=== PATIENT | male | born 1945 | race Caucasian/White ===

== ENCOUNTER 2019-07-27 19:28 | Observation (INO) | payer MEDICARE, OTHER ==
[2019-07-27 20:38] LABS: ABSOLUTE EOSINOPHILS # (AUTO) 0.1 10^3/uL (0.0-0.6); ABSOLUTE LYMPHOCYTES (AUTO) 0.9 10^3/uL (0.5-4.7); ABSOLUTE MONOCYTES (AUTO) 0.6 10^3/uL (0.1-1.4); ABSOLUTE NEUT (AUTO) 4.6 10^3/uL (1.7-8.2); BASOPHILS % (AUTO) 0.5 % (0-2); EOSINOPHILS % (AUTO) 2.4 % (0-6); HEMATOCRIT 33.2 % (37.9-51.0); HEMOGLOBIN 10.6 g/dL (13.5-17.0); LYMPHOCYTES % (AUTO) 13.8 % (13-45); MEAN CORPUSCULAR VOLUME 84 fl (80-97); MONOCYTES % (AUTO) 10.2 % (3-13); PLATELET COUNT 223 10^3/uL (150-450); RED BLOOD COUNT 3.93 10^6/uL (4.35-5.55); RED CELL DISTRIBUTION WIDTH 20.8 % (11.5-14.0); SEGMENTED NEUTROPHILS % (AUTO) 73.1 % (42-78); TOTAL CELLS COUNTED % (AUTO) 100 %; WHITE BLOOD COUNT 6.3 10^3/uL (4.0-10.5)
[2019-07-27 20:44] LABS: ALBUMIN 4.1 g/dL (3.5-5.0); ALKALINE PHOSPHATASE 95 U/L (38-126); ANION GAP 9 (5-19); ASPARTATE AMINO TRANSFERASE 44 U/L (17-59); BILIRUBIN,DIRECT 0.4 mg/dL (0.0-0.4); BILIRUBIN,TOTAL 0.7 mg/dL (0.2-1.3); BLOOD UREA NITROGEN 27 mg/dL (7-20); CALCIUM 9.4 mg/dL (8.4-10.2); CARBON DIOXIDE 27 mmol/L (22-30); CHLORIDE 103 mmol/L (98-107); CREATINE KINASE 62 U/L (55-170); GLUCOSE 91 mg/dL (75-110); POTASSIUM 4.9 mmol/L (3.6-5.0); TOTAL PROTEIN 7.5 g/dL (6.3-8.2)
[2019-07-27 20:56] LABS: CREATINE KINASE MB 1.02 ng/mL (<4.55)
[2019-07-27 20:57] LABS: TROPONIN I < 0.012 ng/mL
[2019-07-27] MEDS ORDERED: NITROGLYCERIN 2% OINTMENT 1 GM PACKET TP ONE (21:09)
--- NOTE | 2019-07-27 21:21 | ER Document Report ---
Entered by ALFIE ALVAREZ SCRIBE 07/27/192054 Acting as scribe for:ITZ LAMBERT IV, MD ED General - General Chief Complaint: Chest Pain Stated Complaint: CHEST PAIN Time Seen by Provider: 07/27/19 19:42 Primary Care Provider: DUY VILLALOBOS FNP [Primary Care Provider] - Follow up as needed Mode of Arrival: Ambulatory Information source: Patient, Relative - Notes: This 74 year old male patient with a history of CAD, SD, CHF, HTN, and HLD presents to the ED today accompanied by his with complaints of chest pain with radiation down to his LUE that started x1 hour prior to arrival. states that when she returned from shopping, she found the patient sitting in the car complaining of chest pain. Patient reports that he took x3 NTG with minimal relief. Patient states that the chest pain at its worse was 10/5, but is now 0/5 and "easing off." TRAVEL OUTSIDE OF THE [place] IN LAST 30 DAYS: No - Related Data Allergies/Adverse Reactions: No Known Allergies Allergy (Verified 07/27/19 20:13) Past Medical History - General Information source: Patient, Relative - - Social History Smoking Status: Current Every Day Smoker Cigarette use (# per day): Yes Chew tobacco use (# tins/day): No Smoking Education Provided: No Frequency of alcohol use: None Drug Abuse: None Lives with: Spouse/Significant other Family History: Reviewed & Not Pertinent Patient has suicidal ideation: No Patient has homicidal ideation: No - Past Medical History Cardiac Medical History: Reports: Hx Congestive Heart Failure, Hx Coronary Artery Disease, Hx Heart Attack, Hx Hypercholesterolemia, Hx Hypertension GI Medical History: Reports: Hx Gastroesophageal Reflux Disease Past Surgical History: Reports: Hx Cardiac Catheterization - stent placed, Hx Coronary Artery Bypass Graft, Hx Coronary Stent - Immunizations Hx Diphtheria, Pertussis, Tetanus Vaccination: Yes Hx Pneumococcal Vaccination: 07/13/13 Review of Systems - Review of Systems Constitutional: No symptoms reported EENT: No symptoms reported Cardiovascular: See HPI, Chest pain Respiratory: No symptoms reported Gastrointestinal: No symptoms reported Genitourinary: No symptoms reported Male Genitourinary: No symptoms reported Musculoskeletal: See HPI, Other - LUE pain Skin: No symptoms reported Hematologic/Lymphatic: No symptoms reported Neurological/Psychological: No symptoms reported -: Yes All other systems reviewed and negative Physical Exam - Vital signs Vitals: Pulse Ox 84 L 07/27/19 18:32 - General General appearance: Alert - and oriented, Other - Non-focal physical exam In distress: None - HEENT Head: Normocephalic, Atraumatic Eyes: Normal Pupils: PERRL - Respiratory Respiratory status: No respiratory distress Chest status: Nontender Breath sounds: Normal Chest palpation: Normal - Cardiovascular Rhythm: Regular Heart sounds: Normal auscultation Murmur: No Friction rub: No Gallop: None auscultated - Abdominal Inspection: Normal Distension: No distension Bowel sounds: Normal Tenderness: Nontender - Abdomen soft Organomegaly: No organomegaly - Back Back: Normal, Nontender - Extremities General upper extremity: Normal inspection General lower extremity: Normal inspection - Neurological Neuro grossly intact: Yes - Psychological Associated symptoms: Normal affect, Normal mood - Skin Skin Temperature: Warm Skin Moisture: Dry Skin Color: Normal Course - Re-evaluation Re-evalutation: 07/27/19 22:01 Results of ED MSE discussed with patient patient spouse. All questions were answered. Patient is agreeable to overnight admission for observation. - Vital Signs Vital signs: Temp Pulse Resp BP Pulse Ox 97.3 F 79 24 H 160/84 H 90 L 07/27/19 19:38 07/27/19 19:38 07/27/19 21:01 07/27/19 21:01 07/27/19 21:01 - Laboratory Result Diagrams: 07/27/19 20:04 07/27/19 20:04 Laboratory results interpreted by me: 07/27/19 07/27/19 20:04 20:04 RBC 3.93 L Hgb 10.6 L Hct 33.2 L RDW 20.8 H BUN 27 H Creatinine 1.63 H Est GFR ( Amer) 50 L Est GFR (MDRD) Non-Af 42 L - Diagnostic Test Radiology reviewed: Reports reviewed - EKG Interpretation by Me Additional EKG results interpreted by me: 07/27/19 21:14 EKG obtained on 07/27/2027 1912 hrs. was interpreted by this MD. Findings: Sinus rhythm, first-degree AV block is present, there is left axis deviation, P waves preceding QRS complexes, QRS complexes appear narrow, there are no obviously visible ST segment patterns of elevation or depression present to suggest acute myocardial ischemia or infarction. Impression sinus rhythm with first-degree AV block, left axis deviation and nonspecific ST segments. - Consults dr. shira maravilla Time consulted: 21:58 Reason for consultation: 07/27/19 22:22 chest pain, multiple risk factors for cad Consulted provider: will come to ER Discharge - Discharge Clinical Impression: Acute chest pain Condition: Good Disposition: ADMITTED OBSERVATION Admitting Provider: Douglas (Hospitalist) Unit Admitted: Telemetry Referrals: DUY VILLALOBOS FNP [Primary Care Provider] - Follow up as needed I personally performed the services described in the documentation, reviewed and edited the documentation which was dictated to the scribe in my presence, and it accurately records my words and actions.
[2019-07-27] MEDS ORDERED: LACTULOSE SYRUP 20 GM/30 ML UDCUP PO ONE (22:00)
[2019-07-27] MEDS ORDERED: (PENDING PHARMACY ID) (Carbidopa/Levodopa [Carbidopa-Levo 25-100 Mg Odt] 1 EACH) PO SCH (22:00)
[2019-07-27] MEDS ORDERED: MAG HYDROX/AL HYDROX/SIMETH SUSP 30 ML UDCUP PO PRN (22:01)
[2019-07-27] MEDS ORDERED: ACETAMINOPHEN 325 MG TABLET PO PRN (22:01)
--- NOTE | 2019-07-27 22:01 | RADIOLOGY REPORT (SQ) ---
Chest one view on 07/27/2019 at 9:48 PM CLINICAL INDICATION: Chest pain COMPARISON: 12/07/2013 FINDINGS: The patient is status post median sternotomy. There are stable bilateral areas of likely pleural thickening versus stable loculated lateral pleural effusions. Vascular calcification is noted in the aorta. Cardiac, hilar and mediastinal contours are within normal limits. Mild chronic interstitial changes are noted. IMPRESSION: No significant change in the appearance of the chest.
[2019-07-27] MEDS ORDERED: CARBIDOPA/LEVODOPA 25-100 MG TABLET PO ONE ×2 (22:15→23:45)
[2019-07-27] MEDS ORDERED: METOPROLOL SUCCINATE 50 MG TAB.SR.24H PO ONE (22:30)
[2019-07-27] MEDS: ATORVASTATIN CALCIUM 80 MG TABLET PO SCH (22:52)
[2019-07-27] MEDS: AMITRIPTYLINE HCL 50 MG TABLET PO SCH (22:52)
--- NOTE | 2019-07-28 05:21 | PDOC H&P ---
History of Present Illness Admission Date/PCP: 07/27/19 22:32 SAVITA ZHOU Patient complains of: Chest pain History of Present Illness: BETH PINEDA is a 74 year old male with a past medical history of coronary artery disease, atrial flutter on Eliquis, rheumatoid arthritis, Parkinson's with dementia and hypertension. Patient presents with left-sided chest pain which was 4 out of 5 intensity lasting approximately 35 minutes not relieved by nitroglycerin x3, it was dull in nature it radiated to his left shoulder and arm. He is unable to identify alleviating or exacerbating factors it was associated with some nausea without vomiting no palpitations or shortness of breath. He denies recent change in medication regiment and is otherwise felt well. He denies recent stress testing. His work-up was unremarkable for acute coronary but significant for a microcytic anemia, acute renal failure, and borderline hyperkalemia. Past Medical History Cardiac Medical History: Reports: Congestive Heart Failure, Coronary Artery Disease, Myocardial Infarction, Hyperlipidema, Hypertension Pulmonary Medical History: Denies: Tuberculosis GI Medical History: Reports: Gastroesophageal Reflux Disease Psychiatric Medical History: Reports: Other - Vape use Denies: Depression Past Surgical History Past Surgical History: Reports: Cardiac Catheterization - stent placed, Coronary Artery Bypass Graft, Coronary Stent Social History Lives with: Spouse/Significant other Smoking Status: Current Every Day Smoker Electronic Cigarette use?: Yes Frequency of Alcohol Use: None Hx Recreational Drug Use: No Drugs: None Hx Prescription Drug Abuse: No Family History Family History: Reviewed & Not Pertinent Parental Family History Reviewed: No Children Family History Reviewed: No Sibling(s) Family History Reviewed.: No Medication/Allergy Home Medications: Amitriptyline HCl [Elavil 50 Mg Tablet] 100 mg PO QHS 07/27/19 Apixaban [Eliquis 5 mg Tablet] 5 mg PO BID 07/27/19 Apremilast [Otezla] 30 mg PO BID 07/27/19 Atorvastatin Calcium [Lipitor] 80 mg PO QHS 07/27/19 Carbidopa/Levodopa [Carbidopa-Levo 25-100 mg Odt] 1 each PO QHS 07/27/19 Carbidopa/Levodopa [Sinemet 25-100 mg Tablet] 1 each PO TID 07/27/19 Docusate Sodium [Colace 100 mg Capsule] 100 mg PO BID 07/27/19 Donepezil HCl [Aricept] 5 mg PO DAILY 07/27/19 Finasteride [Proscar 5 mg Tablet] 5 mg PO DAILY 07/27/19 Fludrocortisone Acetate [Florinef 0.1 mg Tablet] 0.1 mg PO DAILY 07/27/19 Folic Acid 1 mg PO QHS 07/27/19 Furosemide [Lasix 20 mg Tablet] 20 mg PO PRN PRN 07/27/19 Methotrexate Sodium [Rheumatrex 2.5 mg Tablet] 10 mg PO Q7D 07/27/19 Metoprolol Succinate [Toprol Xl 50 mg Tab.sr] 50 mg PO DAILY 07/27/19 Mv-Mn/Iron/Folic Acid/Herb 190 [Vitamin D3 Complete Caplet] 1 each PO DAILY 07/27/19 Omeprazole 20 mg PO DAILY 07/27/19 Potassium Chloride [K-Tab ER] 20 meq PO DAILY 07/27/19 Tamsulosin HCl [Flomax] 0.4 mg PO DAILY 07/27/19 Allergies/Adverse Reactions: No Known Allergies Allergy (Verified 07/27/19 20:13) Review of Systems Constitutional: ABSENT: chills, fever(s), headache(s), weight gain, weight loss Eyes: ABSENT: visual disturbances Ears: ABSENT: hearing changes Cardiovascular: ABSENT: chest pain, dyspnea on exertion, edema, orthropnea, palpitations Respiratory: ABSENT: cough, hemoptysis Gastrointestinal: ABSENT: abdominal pain, constipation, diarrhea, hematemesis, hematochezia, nausea, vomiting Genitourinary: ABSENT: dysuria, hematuria Musculoskeletal: ABSENT: joint swelling Integumentary: ABSENT: rash, wounds Neurological: ABSENT: abnormal gait, abnormal speech, confusion, dizziness, focal weakness, syncope Psychiatric: ABSENT: anxiety, depression, homidical ideation, suicidal ideation Endocrine: ABSENT: cold intolerance, heat intolerance, polydipsia, polyuria Hematologic/Lymphatic: ABSENT: easy bleeding, easy bruising Physical Exam Vital Signs: Temp Pulse Resp BP Pulse Ox 98.3 F 102 H 18 139/76 H 94 07/28/19 04:35 07/28/19 04:35 07/28/19 04:35 07/28/19 04:35 07/28/19 04:35 Intake & Output 07/26/19 07/27/19 07/28/19 11:59 11:59 11:59 Intake Total 90 Balance 90 Weight 84.6 kg General appearance: PRESENT: no acute distress, well-developed, well-nourished Head exam: PRESENT: atraumatic, normocephalic Eye exam: PRESENT: conjunctiva pink, EOMI, PERRLA. ABSENT: scleral icterus Ear exam: PRESENT: normal external ear exam Mouth exam: PRESENT: moist, tongue midline Neck exam: ABSENT: carotid bruit, JVD, lymphadenopathy, thyromegaly Respiratory exam: PRESENT: clear to auscultation angela. ABSENT: rales, rhonchi, wheezes Cardiovascular exam: PRESENT: irregular rhythm. ABSENT: diastolic murmur, rubs, systolic murmur Pulses: PRESENT: normal dorsalis pedis pul Vascular exam: PRESENT: normal capillary refill GI/Abdominal exam: PRESENT: hypoactive bowel sounds, normal bowel sounds, soft, tenderness - Left lower quadrant. ABSENT: distended, guarding, mass, organolmegaly, rebound Rectal exam: PRESENT: deferred Extremities exam: PRESENT: full ROM. ABSENT: calf tenderness, clubbing, pedal edema Neurological exam: PRESENT: alert, awake, oriented to person, oriented to place, oriented to time, oriented to situation, CN II-XII grossly intact. ABSENT: motor sensory deficit Psychiatric exam: PRESENT: appropriate affect, normal mood. ABSENT: homicidal ideation, suicidal ideation Skin exam: PRESENT: dry, intact, warm. ABSENT: cyanosis, rash Results Laboratory Results: 07/27/19 20:04 07/27/19 20:04 07/27/19 07/27/19 20:04 20:04 WBC 6.3 RBC 3.93 L Hgb 10.6 L Hct 33.2 L MCV 84 MCH 27.0 MCHC 32.0 RDW 20.8 H Plt Count 223 Seg Neutrophils % 73.1 Sodium 139.1 Potassium 4.9 Chloride 103 Carbon Dioxide 27 Anion Gap 9 BUN 27 H Creatinine 1.63 H Est GFR ( Amer) 50 L Glucose 91 Calcium 9.4 Total Bilirubin 0.7 AST 44 Alkaline Phosphatase 95 Total Protein 7.5 Albumin 4.1 07/27/19 07/27/19 07/27/19 20:04 20:04 22:50 Creatine Kinase 62 CK-MB (CK-2) 1.02 Troponin I < 0.012 < 0.012 Impressions: Chest X-Ray 07/27/19 19:44 IMPRESSION: No significant change in the appearance of the chest. Assessment and Plan - Diagnosis (1) Acute chest pain Is this a current diagnosis for this admission?: Yes Plan: Atypical chest pain though the patient's pain is atypical there are multiple risk factors for coronary artery disease and subsequently will observe and evaluation of acute coronary syndrome versus coronary artery disease with anginal equivalents. Cardiac monitoring blood pressure Q6 hours ,TSH, lipid profile, serial cardiac enzymes and cardiac stress test (2) Acute renal failure Is this a current diagnosis for this admission?: Yes Plan: Unclear cause, follow-up urinalysis, avoid nephrotoxic meds and doses (3) Constipation Is this a current diagnosis for this admission?: Yes Plan: Left lower quadrant pain, trial lactulose, (4) Microcytic anemia Is this a current diagnosis for this admission?: Yes Plan: Likely iron deficient anemia, follow-up anemia labs and fecal occult stool. (5) Atrial flutter Is this a current diagnosis for this admission?: Yes Plan: Continue outpatient regiment Eliaveryis and Logertrude. (6) CAD (coronary artery disease) Is this a current diagnosis for this admission?: Yes Plan: Please see #1, chest pain care set with likely outpatient stress testing - Time Time Spent with patient: 25-34 minutes
[2019-07-28 05:35] LABS: ABSOLUTE RETICS # 0.043 10^6/uL (0.028-0.122); RETICULOCYTE COUNT (AUTO) 1.12 % (0.66-2.85)
[2019-07-28 07:04] LABS: IRON(TIBC) < 10.1 ug/dL (49-181)
[2019-07-28] MEDS ORDERED: (PENDING PHARMACY ID) (Apremilast [Otezla] 30 MG) PO SCH (10:00)
[2019-07-28] MEDS: ASPIRIN 81 MG TABLET, ENT COATED PO SCH (10:09)
[2019-07-28] MEDS: TAMSULOSIN HCL 0.4 MG CAP.SR.24H PO SCH (10:09)
[2019-07-28] MEDS: METOPROLOL SUCCINATE 50 MG TAB.SR.24H PO SCH (10:09)
[2019-07-28] MEDS: DOCUSATE SODIUM 100 MG CAPSULE PO SCH ×2 (10:10→18:38)
[2019-07-28] MEDS: FLUDROCORTISONE ACETATE 0.1 MG TABLET PO SCH (10:10)
[2019-07-28] MEDS: DONEPEZIL HCL 5 MG TABLET PO SCH (10:10)
[2019-07-28] MEDS: CARBIDOPA/LEVODOPA 25-100 MG TABLET PO SCH ×3 (10:10→18:38)
[2019-07-28] MEDS: APIXABAN 5 MG TABLET PO SCH ×2 (10:10→18:38)
[2019-07-28] MEDS: FINASTERIDE 5 MG TABLET PO SCH (10:10)
[2019-07-28] MEDS ORDERED: IRON SUCROSE COMPLEX 300 MG in NORMAL SALINE 250 ML IV ONE (11:00)
[2019-07-28] MEDS: NORMAL SALINE 1000 ML 1,000 ML IV PRN ×2 (13:10→22:06)
[2019-07-28] MEDS ORDERED: MAGNESIUM HYDROXIDE SUSP 30 ML UDCUP PO PRN (15:54)
--- NOTE | 2019-07-28 16:04 | PDOC PROGRESS REPORT ---
Subjective Progress Note for:: 07/28/19 Subjective:: BETH PINEDA is a 74 year old male with a past medical history of coronary artery disease, atrial flutter on Eliquis, rheumatoid arthritis, Parkinson's with dementia and hypertension who was admitted 07/27/2019 for chest pain, and IJEOMA. Patient was seen on morning rounds with his present. He was found resting in bed, comfortably, on room air. He reports that he is feeling well today and is hopeful to discharge home soon. He denies any further episodes of chest discomfort. He further denies fever, palpitations, dyspnea, orthopnea, cough, abdominal pain, nausea vomiting diarrhea. Have no questions or concerns at this time. No concerns per nursing. Reason For Visit: CP Physical Exam Vital Signs: Temp Pulse Resp BP Pulse Ox 98.3 F 83 20 124/73 99 07/28/19 11:20 07/28/19 11:20 07/28/19 11:20 07/28/19 11:20 07/28/19 11:20 Intake & Output 07/27/19 07/28/19 07/29/19 06:59 06:59 06:59 Intake Total 90 390 Balance 90 390 Weight 84.6 kg General appearance: PRESENT: no acute distress, cooperative, well-developed, well-nourished Head exam: PRESENT: atraumatic, normocephalic Eye exam: PRESENT: conjunctiva pink, EOMI, PERRLA. ABSENT: scleral icterus Ear exam: PRESENT: normal external ear exam Mouth exam: PRESENT: moist, tongue midline Respiratory exam: PRESENT: clear to auscultation angela, symmetrical, unlabored. ABSENT: rales, rhonchi, wheezes Cardiovascular exam: PRESENT: irregular rhythm, +S1, +S2. ABSENT: diastolic murmur, rubs, systolic murmur Pulses: PRESENT: normal dorsalis pedis pul Vascular exam: PRESENT: normal capillary refill Rectal exam: PRESENT: deferred Extremities exam: PRESENT: full ROM. ABSENT: calf tenderness, clubbing, pedal edema Neurological exam: PRESENT: alert, awake, oriented to person, oriented to place, oriented to time, oriented to situation, CN II-XII grossly intact. ABSENT: motor sensory deficit Psychiatric exam: PRESENT: appropriate affect, normal mood. ABSENT: homicidal ideation, suicidal ideation Skin exam: PRESENT: dry, intact, warm. ABSENT: cyanosis, rash Results Laboratory Results: 07/27/19 20:04 07/27/19 20:04 07/27/19 07/27/19 07/28/19 20:04 20:04 04:28 WBC 6.3 RBC 3.93 L Hgb 10.6 L Hct 33.2 L MCV 84 MCH 27.0 MCHC 32.0 RDW 20.8 H Plt Count 223 Seg Neutrophils % 73.1 Retic Count (auto) 1.12 Sodium 139.1 Potassium 4.9 Chloride 103 Carbon Dioxide 27 Anion Gap 9 BUN 27 H Creatinine 1.63 H Est GFR ( Amer) 50 L Glucose 91 Calcium 9.4 Iron TIBC Ferritin Total Bilirubin 0.7 AST 44 Alkaline Phosphatase 95 Total Protein 7.5 Albumin 4.1 Vitamin B12 Folate 07/28/19 05:27 WBC RBC Hgb Hct MCV MCH MCHC RDW Plt Count Seg Neutrophils % Retic Count (auto) Sodium Potassium Chloride Carbon Dioxide Anion Gap BUN Creatinine Est GFR ( Amer) Glucose Calcium Iron < 10.1 L TIBC 411 Ferritin 12.60 L Total Bilirubin AST Alkaline Phosphatase Total Protein Albumin Vitamin B12 294.0 Folate 12.80 07/27/19 07/27/19 07/27/19 20:04 20:04 22:50 Creatine Kinase 62 CK-MB (CK-2) 1.02 Troponin I < 0.012 < 0.012 07/28/19 04:28 Creatine Kinase CK-MB (CK-2) Troponin I < 0.012 Impressions: Chest X-Ray 07/27/19 19:44 IMPRESSION: No significant change in the appearance of the chest. Assessment and Plan - Diagnosis (1) Acute chest pain Is this a current diagnosis for this admission?: Yes Plan: Atypical chest pain though the patient's pain is atypical there are multiple risk factors for coronary artery disease. Patient was admitted to medical floor on continuous cardiac telemetry. EKG demonstrated atrial fibrillation with no ST segment changes or other findings. Sinus rhythm with first-degree AV block: No ST segment changes or other acute findings. Serial troponins have been negative x4. We will check hemoglobin A1c and lipid panel with a.m. lab work. We will continue his home dose Eliquis. Provide daily ASA. Continue home antihypertensives. Continue home dose atorvastatin. Follow-up Cardiolite stress test. Cardiac diet. (2) Acute renal failure Is this a current diagnosis for this admission?: Yes Plan: Unclear cause. Urinalysis pending. Will check bladder scan to evaluate for urinary retention with urinary overflow. We will avoid nephrotoxic medications as able. Provide gentle IV fluids. Follow-up chemistry. (3) Constipation Is this a current diagnosis for this admission?: Yes Plan: Left lower quadrant pain Lactulose x1 last night. Continue Colace. Milk of Mag x1 now. (4) Microcytic anemia Is this a current diagnosis for this admission?: Yes Plan: Anemia panel reveals iron deficiency anemia. IV Venofer. Daily multivitamin with oral Ferrous sulfate supplementation. Will check UA and Occult stool. Outpatient follow-up by PCP; may benefit from hematology referral for continued outpatient management. (5) Atrial flutter Is this a current diagnosis for this admission?: Yes Plan: PAF Currently rate controlled in sinus rhythm Continue outpatient regiment Eliquis and Lopressor. Monitor on telemetry. (6) CAD (coronary artery disease) Is this a current diagnosis for this admission?: Yes Plan: Eliquis, ASA, statin therapy. Cardiac diet. Remaining management as in #1 - Time Time Spent with patient: 35 or more minutes Medications reviewed and adjusted accordingly: Yes Anticipated discharge: Home Within: within 24 hours
[2019-07-28] MEDS ORDERED: MAGNESIUM HYDROXIDE SUSP 30 ML UDCUP PO ONE (16:30)
[2019-07-28 18:39] LABS: APPEARANCE,URINE CLEAR; BILIRUBIN,URINE NEGATIVE (NEGATIVE); COLOR,URINE STRAW; GLUCOSE, URINE NEGATIVE (NEGATIVE); KETONES,URINE NEGATIVE (NEGATIVE); LEUKOCYTE ESTERASE,URINE NEGATIVE (NEGATIVE); NITRITE,URINE NEGATIVE (NEGATIVE); PROTEIN,URINE NEGATIVE (NEGATIVE); URINE SPECIFIC GRAVITY 1.009; UROBILINOGEN,URINE NEGATIVE mg/dL (<2.0)
[2019-07-28] MEDS ORDERED: LACTULOSE SYRUP 20 GM/30 ML UDCUP PO ONE (20:15)
--- NOTE | 2019-07-28 20:50 | RADIOLOGY REPORT (SQ) ---
EXAM DESCRIPTION: [facility]: XR ABDOMEN 2 VIEWS SUPINE ERECT Views: 2 CLINICAL HISTORY: 74 years Male; pain; COMPARISON: None. FINDINGS: Supine and erect AP abdomen: Bowel gas pattern is normal, with no air-fluid levels or small bowel distention. No free intraperitoneal air. There are several calcifications overlying left kidney, up to 5 mm diameter. No right renal calcifications. Psoas shadows are sharp. Sternal wires are partially visualized. IMPRESSION: 1. No acute bowel findings 2. Left renal calculi
[2019-07-28] MEDS ORDERED: NA PHOS,M-B/NA PHOS,DI-BA (ADULT) 133 ML ENEMA PR ONE (21:00)
[2019-07-28 21:02] LABS: CREATINE KINASE MB 1.14 ng/mL (<4.55)
[2019-07-28 21:03] LABS: TROPONIN I < 0.012 ng/mL
[2019-07-28] MEDS: ATORVASTATIN CALCIUM 80 MG TABLET PO SCH (21:35)
[2019-07-28] MEDS: AMITRIPTYLINE HCL 50 MG TABLET PO SCH (21:35)
[2019-07-28] MEDS ORDERED: CARBIDOPA/LEVODOPA 25-100 MG TABLET PO SCH (22:00)
--- NOTE | 2019-07-29 00:27 | EKG REPORT ---
SEVERITY:- ABNORMAL ECG - SINUS RHYTHM VENTRICULAR PREMATURE COMPLEX FIRST DEGREE AV BLOCK LEFT AXIS DEVIATION : Confirmed by: Vivian Obrien 29-Jul-2019 00:27:15
--- NOTE | 2019-07-29 00:27 | EKG REPORT ---
SEVERITY:- ABNORMAL ECG - SINUS RHYTHM FIRST DEGREE AV BLOCK PROBABLE LEFT ATRIAL ABNORMALITY LEFT AXIS DEVIATION BORDERLINE T WAVE ABNORMALITIES BORDERLINE PROLONGED QT INTERVAL : Confirmed by: Vivian Obrien 29-Jul-2019 00:27:25
[2019-07-29 02:55] LABS: CREATINE KINASE MB 0.95 ng/mL (<4.55); TROPONIN I 0.014 ng/mL
--- NOTE | 2019-07-29 07:50 | EKG REPORT ---
SEVERITY:- ABNORMAL ECG - SINUS RHYTHM VENTRICULAR PREMATURE COMPLEX FIRST DEGREE AV BLOCK LEFT AXIS DEVIATION : Confirmed on behalf of: Vivian Obrien 29-Jul-2019 07:49:39
[2019-07-29 09:40] LABS: CREATINE KINASE MB 0.88 ng/mL (<4.55); TROPONIN I 0.017 ng/mL
[2019-07-29] MEDS ORDERED: MULTIVITAMIN TABLET PO SCH (10:00)
[2019-07-29] MEDS: CARBIDOPA/LEVODOPA 25-100 MG TABLET PO SCH ×2 (11:21→16:26)
[2019-07-29] MEDS: FLUDROCORTISONE ACETATE 0.1 MG TABLET PO SCH (11:21)
[2019-07-29] MEDS: FINASTERIDE 5 MG TABLET PO SCH (11:21)
[2019-07-29] MEDS: DONEPEZIL HCL 5 MG TABLET PO SCH (11:21)
[2019-07-29] MEDS: APIXABAN 5 MG TABLET PO SCH (11:21)
[2019-07-29] MEDS: ASPIRIN 81 MG TABLET, ENT COATED PO SCH (11:21)
[2019-07-29] MEDS: TAMSULOSIN HCL 0.4 MG CAP.SR.24H PO SCH (11:21)
[2019-07-29] MEDS: DOCUSATE SODIUM 100 MG CAPSULE PO SCH (11:22)
[2019-07-29] MEDS: METOPROLOL SUCCINATE 50 MG TAB.SR.24H PO SCH (11:22)
[2019-07-29] MEDS: NORMAL SALINE 1000 ML 1,000 ML IV PRN (11:26)
[2019-07-29] MEDS ORDERED: REGADENOSON INJ 0.4 MG/5 ML DISP.SYRIN IV ONE (14:41)
--- NOTE | 2019-07-29 15:42 | DRAGON STRESS TEST REPORT ---
Pharmacological nuclear stress test Date July 29, 2019 Name: Dioni Nascimento Date of : 1945 Age: 74 years Indication: Chest pain, coronary artery disease, CABG Procedure Initially rest images of the heart were obtained 90 minutes after injection of 12.09 mCi of technetium 99m sestamibi. Under the supervision of Efrem Louie MD the patient was given regadenoson 0.4 mg IV followed by 35.7 mCi of technetium 99m sestamibi. The patient's EKG and vital signs were monitored throughout the procedure. Patient's resting EKG showed sinus tachycardia at 104 bpm. EKG monitoring did not show any evidence of myocardial ischemia due to pharmacological stress. Stress images of the heart were obtained 90 minutes after the Cardiolite stress dose was given. Raw rest as well as stress images were reviewed. There was significant gut uptake. Motion correction was used. Review of rest as well as stress images shows fairly symmetrical radiotracer uptake throughout the myocardium. There is a small to medium intensity fixed defect in the inferior and inferobasal segments which likely represents diaphragmatic attenuation. The TID ratio is 1.15. The calculated left ventricular ejection fraction is 46%. Visually ejection fraction estimated at 50%. There is normal myocardial contractility during rest as well as stress. Conclusion There is no EKG evidence of myocardial ischemia by pharmacological stress Myocardial perfusion imaging shows no significant reversible perfusion defects. Left ventricular ejection fraction is low normal at 50% Normal LV wall motion contractility during rest as well as stress. MTDD
[2019-07-29 18:55] VITALS: BP 165/86
--- NOTE | 2019-07-31 13:59 | PDOC DISCHARGE SUMMARY ---
Impression - Admit/DC Date/PCP Admission Date/Primary Care Provider: 07/27/19 22:32 SAVITA ZHOU Discharge Date: 07/29/19 - Discharge Diagnosis (1) Acute chest pain Is this a current diagnosis for this admission?: Yes (2) Acute renal failure Is this a current diagnosis for this admission?: Yes (3) Constipation Is this a current diagnosis for this admission?: Yes (4) Microcytic anemia Is this a current diagnosis for this admission?: Yes (5) Atrial flutter Is this a current diagnosis for this admission?: Yes (6) CAD (coronary artery disease) Is this a current diagnosis for this admission?: Yes - Additional Information Discharge Diet: Cardiac, Diabetic Discharge Activity: Activity As Tolerated, Balance Activity w/Rest, Slowly Increase Activity Referrals: LIMA LIANG NP [NO LOCAL MD] - 08/01/19 1:30 pm () Home Medications: Amitriptyline HCl [Elavil 50 Mg Tablet] 100 mg PO HSP PRN 07/27/19 Apixaban [Eliquis 5 mg Tablet] 5 mg PO BID 07/27/19 Apremilast [Otezla] 30 mg PO BID 07/27/19 Atorvastatin Calcium [Lipitor] 80 mg PO QHS 07/27/19 Carbidopa/Levodopa [Sinemet 25-100 mg Tablet] 2.5 each PO MEALS 07/27/19 Docusate Sodium [Colace 100 mg Capsule] 100 mg PO BID 07/27/19 Donepezil HCl [Aricept] 5 mg PO DAILY 07/27/19 Finasteride [Proscar 5 mg Tablet] 5 mg PO DAILY 07/27/19 Fludrocortisone Acetate [Florinef 0.1 mg Tablet] 0.1 mg PO DAILY 07/27/19 Folic Acid 1 mg PO QHS 07/27/19 Furosemide [Lasix 20 mg Tablet] 20 mg PO DAILYP PRN 07/27/19 Methotrexate Sodium [Rheumatrex 2.5 mg Tablet] 10 mg PO WE@1000 07/27/19 Metoprolol Succinate [Toprol Xl 50 mg Tab.sr] 100 mg PO DAILY 07/27/19 Mv-Mn/Iron/Folic Acid/Herb 190 [Vitamin D3 Complete Caplet] 1 each PO QPM 07/27/19 Omeprazole 20 mg PO DAILY 07/27/19 Potassium Chloride [K-Tab ER] 20 meq PO DAILY 07/27/19 Tamsulosin HCl [Flomax] 0.4 mg PO DAILY 07/27/19 Carbidopa/Levodopa [Sinemet Cr 25-100 Tablet] 1 tab.sa PO QPM 07/28/19 Ciprofloxacin HCl [Cipro] 250 mg PO DAILYP PRN 07/28/19 Metoprolol Succinate [Toprol Xl 50 mg Tab.sr] 50 mg PO QPM 07/28/19 Carbidopa/Levodopa [Sinemet 25-100 mg Tablet] 1 tab PO QHS tablet 07/29/19 Multivitamin [Tab-A-Leobardo (Multiple Vitamin) Tablet] 1 tab PO DAILY tablet 07/29/19 History of Present Illiness History of Present Illness: Per H&P by Dr. Cole: BETH PINEDA is a 74 year old male with a past medical history of coronary artery disease, atrial flutter on Eliquis, rheumatoid arthritis, Parkinson's with dementia and hypertension. Patient presents with left-sided chest pain which was 4 out of 5 intensity lasting approximately 35 minutes not relieved by nitroglycerin x3, it was dull in nature it radiated to his left shoulder and arm. He is unable to identify alleviating or exacerbating factors it was associated with some nausea without vomiting no palpitations or shortness of breath. He denies recent change in medication regiment and is otherwise felt well. He denies recent stress testing. His work-up was unremarkable for acute coronary but significant for a microcytic an emia, acute renal failure, and borderline hyperkalemia. Hospital Course Hospital Course: (1) Acute chest pain Atypical chest pain though the patient's pain is atypical there are multiple risk factors for coronary artery disease. Patient was admitted to medical floor on continuous cardiac telemetry. EKG demonstrated atrial fibrillation with no ST segment changes or other findings. Sinus rhythm with first-degree AV block: No ST segment changes or other acute findings. Serial troponins have been negative x4. Cardiolite stress test was normal. Patient was placed on a cardiac diet. His home dose Eliquis, aspirin, atorvastatin, and hypertensive therapies were continued. He is discharged home in stable condition with recommendations to follow-up with his primary care provider within 1 week and to notify his established psychiatric security nurse of his admission; follow-up as directed. He is advised to return to emergency department as needed for any concerning symptoms. (2) Acute renal failure Urinalysis normal Bladder scan with normal; no evidence of urinary retention with urine overflow. Will check bladder scan to evaluate for urinary retention with urinary overflow. Patient was provided gentle IV fluids. Encourage oral fluids. Recommend follow-up chemistry at visit with PCP (3) Constipation Resolved following bowel regiment of Dulcolax suppository, Colace, milk of magnesia, and Fleet enema. (4) Microcytic anemia Anemia panel reveals iron deficiency anemia. Patient received IV Venofer. Daily multivitamin with oral Ferrous sulfate supplementation. Urinalysis and occult stool both negative for blood. Outpatient follow-up by PCP; may benefit from hematology referral for continued outpatient management. (5) Atrial flutter PAF Currently rate controlled in sinus rhythm Continue outpatient regiment Eliquis and Lopressor. Monitor on telemetry. (6) CAD (coronary artery disease) Eliquis, ASA, statin therapy. Cardiac diet. Remaining management as in #1 Physical Exam Vital Signs: Temp Pulse Resp BP Pulse Ox 97.5 F 99 20 165/86 H 100 07/29/19 18:48 07/29/19 18:48 07/29/19 18:48 07/29/19 18:48 07/29/19 18:48 Intake & Output 07/30/19 07/31/19 08/01/19 06:59 06:59 06:59 Intake Total 482 Balance 482 General appearance: PRESENT: no acute distress, well-developed, well-nourished Head exam: PRESENT: atraumatic, normocephalic Eye exam: PRESENT: conjunctiva pink, EOMI, PERRLA. ABSENT: scleral icterus Ear exam: PRESENT: normal external ear exam Mouth exam: PRESENT: moist, tongue midline Neck exam: ABSENT: carotid bruit, JVD, lymphadenopathy, thyromegaly Respiratory exam: PRESENT: clear to auscultation angela. ABSENT: rales, rhonchi, wheezes Cardiovascular exam: PRESENT: RRR. ABSENT: diastolic murmur, rubs, systolic murmur Pulses: PRESENT: normal dorsalis pedis pul Vascular exam: PRESENT: normal capillary refill GI/Abdominal exam: PRESENT: normal bowel sounds, soft. ABSENT: distended, guarding, mass, organolmegaly, rebound, tenderness Rectal exam: PRESENT: deferred Extremities exam: PRESENT: full ROM. ABSENT: calf tenderness, clubbing, pedal edema Neurological exam: PRESENT: alert, awake, oriented to person, oriented to place, oriented to time, oriented to situation, CN II-XII grossly intact. ABSENT: motor sensory deficit Psychiatric exam: PRESENT: appropriate affect, normal mood. ABSENT: homicidal ideation, suicidal ideation Skin exam: PRESENT: dry, intact, warm. ABSENT: cyanosis, rash Results Laboratory Results: WBC 6.3 10^3/uL (4.0-10.5) 07/27/19 20:04 RBC 3.93 10^6/uL (4.35-5.55) L 07/27/19 20:04 Hgb 10.6 g/dL (13.5-17.0) L 07/27/19 20:04 Hct 33.2 % (37.9-51.0) L 07/27/19 20:04 MCV 84 fl (80-97) 07/27/19 20:04 MCH 27.0 pg (27.0-33.4) 07/27/19 20:04 MCHC 32.0 g/dL (32.0-36.0) 07/27/19 20:04 RDW 20.8 % (11.5-14.0) H 07/27/19 20:04 Plt Count 223 10^3/uL (150-450) 07/27/19 20:04 Lymph % (Auto) 13.8 % (13-45) 07/27/19 20:04 [place] % (Auto) 10.2 % (3-13) 07/27/19 20:04 Eos % (Auto) 2.4 % (0-6) 07/27/19 20:04 Baso % (Auto) 0.5 % (0-2) 07/27/19 20:04 Reticulocyte # 0.043 10^6/uL (0.028-0.122) 07/28/19 04:28 Absolute Neuts (auto) 4.6 10^3/uL (1.7-8.2) 07/27/19 20:04 Absolute Lymphs (auto) 0.9 10^3/uL (0.5-4.7) 07/27/19 20:04 Absolute Monos (auto) 0.6 10^3/uL (0.1-1.4) 07/27/19 20:04 Absolute Eos (auto) 0.1 10^3/uL (0.0-0.6) 07/27/19 20:04 Absolute Basos (auto) 0.0 10^3/uL (0.0-0.2) 07/27/19 20:04 Seg Neutrophils % 73.1 % (42-78) 07/27/19 20:04 Retic Count (auto) 1.12 % (0.66-2.85) 07/28/19 04:28 Sodium 139.1 mmol/L (137-145) 07/27/19 20:04 Potassium 4.9 mmol/L (3.6-5.0) 07/27/19 20:04 Chloride 103 mmol/L (98-107) 07/27/19 20:04 Carbon Dioxide 27 mmol/L (22-30) 07/27/19 20:04 Anion Gap 9 (5-19) 07/27/19 20:04 BUN 27 mg/dL (7-20) H 07/27/19 20:04 Creatinine 1.63 mg/dL (0.52-1.25) H 07/27/19 20:04 Est GFR ( Amer) 50 (>60) L 07/27/19 20:04 Est GFR (MDRD) Non-Af 42 (>60) L 07/27/19 20:04 Glucose 91 mg/dL (75-110) 07/27/19 20:04 Calcium 9.4 mg/dL (8.4-10.2) 07/27/19 20:04 Iron < 10.1 ug/dL (49-181) L 07/28/19 05:27 TIBC 411 ug/dL (250-450) 07/28/19 05:27 Iron Saturation UNABLE TO CALCULATE % (20% - 50%) 07/28/19 05:27 Ferritin 12.60 ng/mL (17.9-464.0) L 07/28/19 05:27 Total Bilirubin 0.7 mg/dL (0.2-1.3) 07/27/19 20:04 Direct Bilirubin 0.4 mg/dL (0.0-0.4) 07/27/19 20:04 Neonat Total Bilirubin Not Reportable 07/27/19 20:04 Neonat Direct Bilirubin Not Reportable 07/27/19 20:04 Neonat Indirect Bili Not Reportable 07/27/19 20:04 AST 44 U/L (17-59) 07/27/19 20:04 ALT 6 U/L (<50) 07/27/19 20:04 Alkaline Phosphatase 95 U/L (38-126) 07/27/19 20:04 Creatine Kinase 61 U/L (55-170) 07/29/19 08:23 CK-MB (CK-2) 0.88 ng/mL (<4.55) 07/29/19 08:23 Troponin I 0.017 ng/mL 07/29/19 08:23 Total Protein 7.5 g/dL (6.3-8.2) 07/27/19 20:04 Albumin 4.1 g/dL (3.5-5.0) 07/27/19 20:04 Vitamin B12 294.0 pg/mL (239-931) 07/28/19 05:27 Folate 12.80 ng/mL (>2.76) 07/28/19 05:27 Urine Color STRAW 07/28/19 18:21 Urine Appearance CLEAR 07/28/19 18:21 Urine pH 6.0 (5.0-9.0) 07/28/19 18:21 Ur Specific [place] 1.009 07/28/19 18:21 Urine Protein NEGATIVE mg/dL (NEGATIVE) 07/28/19 18:21 Urine Glucose (UA) NEGATIVE mg/dL (NEGATIVE) 07/28/19 18:21 Urine Ketones NEGATIVE mg/dL (NEGATIVE) 07/28/19 18:21 Urine Blood NEGATIVE (NEGATIVE) 07/28/19 18:21 Urine Nitrite NEGATIVE (NEGATIVE) 07/28/19 18:21 Urine Bilirubin NEGATIVE (NEGATIVE) 07/28/19 18:21 Urine Urobilinogen NEGATIVE mg/dL (<2.0) 07/28/19 18:21 Ur Leukocyte Esterase NEGATIVE (NEGATIVE) 07/28/19 18:21 Urine RBC (Auto) 0 /HPF 07/28/19 18:21 Urine Mucus (Auto) RARE /LPF 07/28/19 18:21 Urine Ascorbic Acid 20 (NEGATIVE) H 07/28/19 18:21 Stool Occult Blood NEGATIVE (NEGATIVE) 07/28/19 22:40 07/27/19 07/27/19 07/28/19 20:04 22:50 04:28 CK-MB (CK-2) 1.02 Troponin I < 0.012 < 0.012 < 0.012 07/28/19 07/29/19 07/29/19 20:15 02:09 08:23 CK-MB (CK-2) 1.14 0.95 0.88 Troponin I < 0.012 0.014 0.017 Impressions: Chest X-Ray 07/27/19 19:44 IMPRESSION: No significant change in the appearance of the chest. Abdomen X-Ray 07/28/19 20:03 IMPRESSION: 1. No acute bowel findings 2. Left renal calculi Plan Plan of Treatment: Patient is discharged home in stable condition. He is instructed to follow-up with his primary care provider within 1 week. Also recommend the patient contact his established psychiatric security nurse to notify them of his admission; follow-up as directed. Take medications as prescribed. Eat a heart healthy diet. Do NOT smoke. Return to emergency department as needed for concerning symptoms. Time Spent: Greater than 30 Minutes Stroke Is this a Stroke Patient?: No Acute Heart Failure - Is this a Heart Failure Patient?: No
== END 2019-07-29 19:55 | disposition home or self-care (01) ==
LOC: ER 19:28 → EH 22:32 → 5 23:20 → 4S 07-29 05:31
PROVIDERS: ADMIT Internal Medicine; ATTEND Internal Medicine
DX: R07.89 Other chest pain (principal); N17.9 Acute kidney failure, unspecified; K59.00 Constipation, unspecified; I25.2 Old myocardial infarction; D50.9 Iron deficiency anemia, unspecified; I48.92 Unspecified atrial flutter; I25.10 Atherosclerotic heart disease of native coronary artery without angina pectoris; M06.9 Rheumatoid arthritis, unspecified; G20 Parkinson's disease; F02.80 Dementia in other diseases classified elsewhere, unspecified severity, without behavioral disturbance, psychotic disturbance, mood disturbance, and anxiety; E87.5 Hyperkalemia; I44.0 Atrioventricular block, first degree; I11.0 Hypertensive heart disease with heart failure; I50.9 Heart failure, unspecified; K21.9 Gastro-esophageal reflux disease without esophagitis; E78.5 Hyperlipidemia, unspecified; F17.290 Nicotine dependence, other tobacco product, uncomplicated; R10.32 Left lower quadrant pain; N20.0 Calculus of kidney; Z79.02 Long term (current) use of antithrombotics/antiplatelets; Z79.899 Other long term (current) drug therapy; Z95.1 Presence of aortocoronary bypass graft; Z95.5 Presence of coronary angioplasty implant and graft; M79.602 Pain in left arm
CPT/HCPCS: 93005 ×2; 99285; 36415 ×3; 82553 ×3; 82607; 82550 ×3; 82728; 82746; 83540; 83550; 85025; 82272; 85045; 80053; 81001; 84484 ×3; 93017; 74019; 71045; 78452; 93010 ×2; G0378 ×3; A9500; J2785; A9270 ×28; J1756; J7030 ×2; J7050; Q9969; J3490